=== PATIENT | female | born 1950 | race Two or more races ===

== ENCOUNTER 2019-05-21 05:53 | Day surgery (SDC) | payer MEDICARE, OTHER ==
[2019-05-11 10:59] LABS: BASOPHILS % (AUTO) 0.7 % (0.0-2.0); EOSINOPHILS % (AUTO) 1.4 % (0.0-3.0); HEMATOCRIT 35.7 % (37.0-47.0); HEMOGLOBIN 11.8 G/DL (12.0-16.0); LYMPHOCYTES % (AUTO) 27.2 % (20.0-45.0); MEAN CORPUSCULAR VOLUME 90 FL (80-99); MONOCYTES % (AUTO) 6.4 % (1.0-10.0); NEUTROPHILS % (AUTO) 64.2 % (45.0-75.0); PLATELET COUNT 312 K/UL (150-450); RED BLOOD COUNT 3.96 M/UL (4.20-5.40); RED CELL DISTRIBUTION WIDTH 12.3 % (11.6-14.8); WHITE BLOOD COUNT 5.8 K/UL (4.8-10.8)
[2019-05-11 11:09] LABS: ANION GAP 6 mmol/L (5-15); BLOOD UREA NITROGEN 17 mg/dL (7-18); CALCIUM 8.7 MG/DL (8.5-10.1); CARBON DIOXIDE 33 MMOL/L (21-32); CHLORIDE 104 MMOL/L (98-107); CREATININE 0.8 MG/DL (0.55-1.30); POTASSIUM 4.2 MMOL/L (3.5-5.1); SODIUM 143 MMOL/L (136-145)
[2019-05-11 11:17] LABS: INR 0.9 (0.9-1.1)
--- NOTE | 2019-05-17 15:43 | Opthalmology H&P ---
Ophthalmology H&P H&P Chief Complaint: decreased vision in left eye HPI Vision Affects Ability to: read, focus/use eyes together, manage personal affairs Past Ocular History: other - Pterygium OU HPI Narrative Blurry vision Exam Visual Acuity: OD 20/50 OS 20/60 Tension: OD 14 OS 12 Eye Exam: normal OU: palpebral fissure-width, marginal reflex distance, levator function, corneas, anterior chambers, lens - NS cataract OS, fundus exam ; findings: external exam - Pterygium OU, lens - NS cataract OS Assessment/Plan Treatment Plan: cataract extraction w/ lens implant Goals of Treatment: improvement of vision, enhance quality of life Attestation Attestation The risks and benefits of the surgery as well as alternative procedures were explained to the patient in detail. Gilberto Greer MD May 17, 2019 15:43
--- NOTE | 2019-05-17 15:45 | Pre-Procedure Note/Attestation ---
Pre-Procedure Note/Attestation Complete Prior to Procedure Planned Procedure: left Procedure Narrative: Cataract extraction with IOL implant left eye Indications for Procedure Pre-Operative Diagnosis: Nuclear sclerotic cataract left eye Attestation I attest that I discussed the nature of the procedure; its benefits; risks and complications; and alternatives (and the risks and benefits of such alternatives ), prior to the procedure, with the patient (or the patient's legal reimbursement representative). I attest that, if there was a reasonable possibility of needing a blood transfusion, the patient (or the patient's legal reimbursement representative) was given the [facility] standardized written summary, pursuant to the Anand Vira Blood Safety Act ([place] Health and Safety Code # 1645, as amended). I attest that I re-evaluated the patient just prior to the surgery and that there has been no change in the patient's H&P, except as documented below: Gilberto Greer MD May 17, 2019 15:45
[~2019-05-21] VITALS: Ht 154.9 cm; Wt 63.5 kg
[2019-05-21] VITALS (10 sets, daily range): BP systolic 116–148; BP diastolic 66–78
[~2019-05-21 05:53] MED LIST: DICLOFENAC SODI75 MG ORAL; MULTIVITAMINS1 EAC2 ORAL
[2019-05-21] MEDS ORDERED: Tetracaine 0.5% Opth 4ml Soln LEFT EYE ONE (07:00)
[2019-05-21] MEDS ORDERED: Proparacaine 0.5% Opth Soln 15ml LEFT EYE ONE (07:00)
[2019-05-21] MEDS ORDERED: Akten 3.5% 1ml Btl LEFT EYE ONE (07:00)
[2019-05-21] MEDS: Ciprofloxacin Opth Soln 2.5ml LEFT EYE SCH ×3 (07:15→07:32)
[2019-05-21] MEDS: Cyclopentolate 1% Opth Sol 2ml LEFT EYE SCH ×3 (07:15→07:31)
[2019-05-21] MEDS: Phenylephrine 10% Opth Soln 5ml LEFT EYE SCH ×3 (07:15→07:31)
[2019-05-21] MEDS: Tropicamide 1% Opth 15ml Soln LEFT EYE SCH ×3 (07:15→07:30)
[2019-05-21] MEDS ORDERED: BSS 500ml btl ONE (07:37)
[2019-05-21] MEDS ORDERED: BSS 15ml BTL ONE (07:38)
[2019-05-21] MEDS ORDERED: Sodium Hyaluronate 10 mg/ml 0.85ml ONE (07:38)
[2019-05-21] MEDS ORDERED: Povidone-Iodine 5% opth solution ONE ×2 (07:38→09:47)
[2019-05-21] MEDS ORDERED: Midazolam 2mg/2ml Inj ONE (08:51)
[2019-05-21] MEDS ORDERED: fentaNYL 100 mcg/2 mL IV ONE (08:51)
--- NOTE | 2019-05-21 09:01 | Anethesia Preoperative Eval ---
Anesthesia Pre-op PMH/ROS General Date of Evaluation: May 21, 2019 Time of Evaluation: 08:59 Anesthesiologist: Diana ASA Score: ASA 2 Mallampati Score Class I : Soft palate, uvula, fauces, pillars visible Class II: Soft palate, uvula, fauces visible Class III: Soft palate, base of uvula visible Class IV: Only hard plate visible Mallampati Classification: Class II Surgeon: Zoey Diagnosis: L eye cataract Surgical Procedure: Cataract extraction Anesthesia History: none Family History: no anesthesia problems Allergies: Coded Allergies: No Known Allergies (Unverified , 03/01/19) Medications: see eMAR Patient NPO?: Yes Past Medical History Cardiovascular: Denies: HTN, CAD, [place], valve dz, arrhythmia, other Pulmonary: Denies: asthma, COPD, JULIA, other Gastrointestinal/Genitourinary: Reports: GERD; Denies: CRI, ESRD, other Neurologic/Psychiatric: Denies: dementia, CVA, depression/anxiety, TIA, other Endocrine: Denies: DM, hypothyroidism, steroids, other HEENT: Reports: cataract (L), cataract (R); Denies: glaucoma, [place] (L), [place] (R), other Hematology/Immune: Denies: anemia, DVT, bleeding disorder, other Musculoskeletal/Integumentary: Denies: OA, RA, DJD, DDD, edema, other PMH Narrative: as above PSxH Narrative: see H&P Anesthesia Pre-op Phys. Exam Physician Exam Last Vital Signs Date Time Temp Pulse Resp B/P (MAP) Pulse Ox O2 Delivery O2 Flow Rate FiO2 05/21/19 07:39 Room Air 05/21/19 07:20 98.1 61 18 148/74 98 Constitutional: NAD Neurologic: CN 2-12 intact Cardiovascular: RRR, no M/R/G Respiratory: CTA Gastrointestinal: S/NT/ND Airway Exam Mallampati Score: Class II MO: full Neck: flexible ROM: full Teeth: missing Dentures: no upper, no lower Anesthesia Pre-op A/P Labs see chart Studies Pre-op Studies: EKG - SR Risk Assessment & Plan Assessment: ASA 2 Plan: MAC Status Change Before Surgery: Vj Britton MD May 21, 2019 09:01
[2019-05-21] MEDS ORDERED: fentaNYL 100 mcg/2 mL IV PRN (09:15)
[2019-05-21] MEDS ORDERED: LR 1000ml ONE (09:30)
[2019-05-21] MEDS ORDERED: NS Irrig 1000ml ONE (09:30)
[2019-05-21] MEDS ORDERED: Sterile Water Irrig 1000ml IRRIG ONE (09:30)
[2019-05-21] MEDS ORDERED: Propofol 200mg/20ml IV ONE (09:30)
--- NOTE | 2019-05-21 10:12 | Immediate Post-Op Evaluation ---
Immediate Post-Op Evalulation Immediate Post-Op Evalulation Procedure: L eye cataract extractionwith IOL Date of Evaluation: May 21, 2019 Time of Evaluation: 10:11 IV Fluids: 600 Blood Products: none Estimated Blood Loss: none Urinary Output: none Blood Pressure Systolic: 127 Blood Pressure Diastolic: 76 Pulse Rate: 58 Respiratory Rate: 20 O2 Sat by Pulse Oximetry: 98 Temperature (Fahrenheit): 98.1 Pain Score (1-10): 1 Nausea: No Vomiting: No Complications none Patient Status: awake, patent, none Hydration Status: adequate Vj Ortiz MD May 21, 2019 10:12
--- NOTE | 2019-05-21 12:43 | 48 Hour Post Anesthesia Eval ---
Post Anesthesia Evaluation Procedure: L eye cataract extraction with IOL Date of Evaluation: May 21, 2019 Time of Evaluation: 12:42 Blood Pressure Systolic: 136 0: 72 Pulse Rate: 74 Respiratory Rate: 20 Temperature (Fahrenheit): 97.8 O2 Sat by Pulse Oximetry: 98 Airway: patent Nausea: No Vomiting: No Pain Intensity: 1 Hydration Status: adequate Cardiopulmonary Status: stable Mental Status/LOC: patient returned to baseline Follow-up Care/Observations: n/a Post-Anesthesia Complications: none Follow-up care needed: ready to discharge Vj Ortiz MD May 21, 2019 12:43
--- NOTE | 2019-05-21 15:15 | Pre-op HX & Phy Repo 2 SIG ---
DATE OF ADMISSION: 05/21/2019 PRESURGICAL INTERNAL MEDICINE HISTORY AND PHYSICAL DATE OF EVALUATION: 05/21/2019 REASON FOR EVALUATION: I was asked by Dr. Gilberto Greer to see this 69-year-old female, who is going for elective surgery on the left eye. The patient has a cataract, left eye. Please see full Ophthalmology History and Physical by Dr. Gilberto Greer. This is second visit to [facility]. The patient has had surgery on the right eye in February 2019. Old chart was reviewed. PAST MEDICAL HISTORY AND REVIEW OF SYSTEMS: Remarkable for history of hypertension and degenerative joint disease of knee. No history of stroke or seizures. No diabetes. Denies history of peptic ulcer disease or acid reflux. No history of hepatitis. Denies history of renal failure. No history of anemia or thyroid problem. PAST SURGICAL HISTORY: Remarkable for bilateral knee replacement, cholecystectomy, and right eye cataract in February 2019. FAMILY HISTORY: Mother of old age. Father from complication of prostate cancer. ALLERGIES: Not known. PRESENT MEDICATIONS: Include multivitamin and diclofenac 75 mg twice a day. HABITS: The patient denies history of smoking, alcohol, or street drug use. PHYSICAL EXAMINATION: GENERAL: The patient is alert, well-developed and well-nourished female in her 60s, in no acute distress. VITAL SIGNS: Blood pressure 148/74, temperature 98.1 degrees, pulse 61, and respirations 17. O2 saturation 98% on room air. SKIN: Clear, warm, and dry. No rashes or diaphoresis. No ulcer disease. LYMPH NODES: Not enlarged. HEENT: Head is normocephalic and atraumatic. Ears, clear. No discharge. Nose, clear. No discharge. Mouth, clear and moist. No dentures. Eyes, full description per Dr. Gilberto Greer. NECK: Supple. No jugular venous distention. Carotids artery +2. Trachea midline. CHEST: No deformity or asymmetry. LUNGS: Clear. No rales or rhonchi. HEART: Rate is regular. No ectopy. No murmur. No S3, S4. ABDOMEN: Soft, benign. No rebound. Liver and spleen not enlarged. EXTREMITIES: Degenerative joint disease, knee. Bilateral knee replacement. No peripheral edema or varicose veins. NEUROLOGIC: No tremor. No nystagmus. GENITOURINARY: No dysuria. No CVA tenderness. LABORATORY AND DIAGNOSTIC DATA: Electrocardiogram, sinus bradycardia, 53 per minute, otherwise normal ECG. The patient did not eat or drink from 7 p.m. yesterday. Laboratory work, mild anemia with hemoglobin 11.8, hematocrit 35.7, red blood cells , white blood cells. 5.0. Coagulation within normal limits. IMPRESSION: 1. Cataract, left eye. 2. Hypertension, untreated. 3. Degenerative joint disease, knee. 4. Mild anemia. 5. Sinus bradycardia on EKG, clinically nonsignificant. The patient did not eat or drink from 7 p.m. yesterday. The patient's condition optimized for surgery. Thank you very much, Dr. Greer, for privilege to participate in presurgical care of this interesting patient. Kushal Miranda M.D. DR: KIMBERLYN JOB#: [id number] CC:
--- NOTE | 2019-05-22 15:28 | Brief Operative Note ---
Immediate Post Operative Note Operative Note Chief Complaint: Blurry vision Pre-op Diagnosis: Nuclear sclerotic cataract left eye Procedure: Cataract extraction with IOL implant left eye Post-op Diagnosis: Pseudo OS Findings: consistent w/pre-op dx studies Surgeon: Gilberto Greer MD Anesthesiologist: Vj Ortiz MD Anesthesia: MAC Specimen: none Complications: none Condition: stable Fluids: LR Estimated Blood Loss: none Drains: none Implant(s) used?: Yes - IOL-OS Gilberto Greer MD May 22, 2019 15:28
--- NOTE | 2019-05-22 15:32 | Operative Note - PDOC ---
Operative Note Operative Note Date of Operation/Procedure: May 21, 2019 Chief Complaint: Blurry vision Pre-op Diagnosis: Nuclear sclerotic cataract left eye Procedure: Cataract extraction with IOL implant left eye Post-op Diagnosis: Pseudo OS Operative Findings: consistent w/pre-op dx studies Surgeon: Gilberto Greer MD Anesthesiologist: Vj Ortiz MD Anesthesia: MAC Specimen: none Complications: none Condition: stable Fluids: LR Estimated Blood Loss: none Drains: none Implant(s) used?: Yes - IOL-OS Indications for Procedure Nuclear sclerotic cataract left eye Description of Procedure This patient has been complaining visually significant cataract in the left eye with the best corrected visual acuity of 20/60 under moderate glare conditions worse. The patient complains of difficulties with glare in performing activities of daily living and wants to manage personal affairs with comfort and accuracy and see well enough to move with safety at home and outdoors. The risks, benefits and alternatives of the procedure were discussed with the patient in the office prior to scheduling surgery. All questions from the patient were answered after the surgical procedure was explained in detail. The risks of the procedure as explained to the patient include, but are not limited to, pain, infection, bleeding, loss of vision, retinal detachment, need for further surgery, loss of lens nucleus, double vision, etc. Alternative procedures were discussed which include, to do nothing or seek a second opinion. Informed consent for this procedure was obtained from the patient. The patient was referred to a primary care physician for a cardiopulmonary clearance prior to surgery, after proper evaluation was done patient was properly scheduled for outpatient surgery. The patient was brought to the operating room where the anesthesiologist established I.V. lines and cardiac monitoring leads. Mild intravenous sedation was administered. The patient was then prepared with a 5% solution of povidone -iodine to the conjunctival fornix and lashes, and a 5% solution of povidone- iodine to the lids and periorbital skin. The patient was then draped in the usual sterile fashion. A lid speculum was then placed in the operative eye. A keratome blade was then used to create a biplanar incision into the anterior chamber. Viscoelastics was then instilled into the anterior chamber. A capsulorrhexis was then fashioned with an utrata forceps A G 27 cannula was used to hydrodissect and hydro delineate the lens nucleus. Paracentesis incision was made at 3 o'clock with sharp blade. The phacoemulsification unit, after being properly adjusted and tested, was then used to emulsify the nucleus. Residual cortical material was aspirated with the irrigation and aspiration unit. Healon was then instilled into the anterior chamber. The corneal wound was then enlarged to the size of the optic with the beni keratome blade. The intraocular lens was then inspected for right power and size and thought to be satisfactory. Then the lens was gently placed in the capsular bag. Positioning within the capsular bag was confirmed by direct visualization. Optic centration was accomplished with a Sinskey hook. Viscoelastics was removed from the anterior chamber using the irrigation and aspiration unit. The corneal wound was then tested for leaks and none were found. The lid speculum were then removed. Sponge and needle counts were correct. An eye patch and shield were placed over the operative eye. The patient was taken to the recovery room in stable condition. There were no complications. The patient tolerated the procedure well. The patient was then transferred to the ambulatory surgery unit in stable and satisfactory condition , was given detailed written instructions and asked to follow up in the office the next day. Gilberto Greer MD May 22, 2019 15:32
== END 2019-05-21 11:25 | disposition home or self-care (01) ==
LOC: SUR 05:53
DX: H25.12 Age-related nuclear cataract, left eye (principal); I10 Essential (primary) hypertension; M17.10 Unilateral primary osteoarthritis, unspecified knee; D64.9 Anemia, unspecified; R00.1 Bradycardia, unspecified; Z79.899 Other long term (current) drug therapy; Z96.653 Presence of artificial knee joint, bilateral; Z90.49 Acquired absence of other specified parts of digestive tract; K21.9 Gastro-esophageal reflux disease without esophagitis
CPT/HCPCS: 36415; 66984; 80048; 85025; 85610; 85730; 93005; J2250; J2704; J3010; J3370; J7120; V2632; 94003; 94150